=== PATIENT | male | born 1980 | race African-American/Black ===

== ENCOUNTER → 2017-04-04 | Outpatient (CLI) | payer BC ==
--- NOTE | 2017-04-04 18:10 | US ---
EXAMINATION TYPE: US abdomen APPY DATE OF EXAM: 04/04/2017 COMPARISON: NONE CLINICAL HISTORY: R10.31 RLQ Pain. Abdomen pain x couple days APPENDIX Is the appendix seen in its entirety from the proximal cecum to distal end: No RLQ: no mass, fluid collection or other abnormality seen at this time to account for patient's clinic al symptoms. IMPRESSION: As above, no significant finding is seen to account for patient's symptoms though append ix is not identified on images saved.
== END | disposition home or self-care (01) ==
LOC: RADUSMAIN 17:13
PROVIDERS: ATTEND Physician Assistant
DX: R10.31 Right lower quadrant pain (principal)
CPT/HCPCS: 76705

== ENCOUNTER → 2020-11-07 | Outpatient (CLI) | payer BC ==
--- NOTE | 2020-11-07 22:02 | MR ---
EXAMINATION TYPE: MR thoracic spine wo con DATE OF EXAM: 11/07/2020 COMPARISON: None HISTORY: Mid back and low back pain for 2 years. Multiplanar multiecho imaging of the thoracic spine without contrast. Thoracic vertebra have normal alignment. Disc spaces are fairly normal. Cervical spinal appears intac t. Thoracic spinal cord appears normal. There is no evidence of a mass. There is no spinal stenosis. There is no thoracic paraspinal mass. Posterior elements are intact. IMPRESSION: Negative MR scan of the thoracic spine. No thoracic disc herniation or spinal stenosis. No fracture s een.
== END | disposition home or self-care (01) ==
LOC: RADMRIMAIN 12:58
PROVIDERS: ATTEND Family Medicine
DX: S29.012A Strain of muscle and tendon of back wall of thorax, initial encounter (principal)
CPT/HCPCS: 72146

== ENCOUNTER 2022-12-13 09:30 | Day surgery (SDC) | payer BC ==
[2022-12-08 10:48] VITALS: BMI 32.5
[~2022-12-13 09:30] MED LIST: LACTATED RINGERS 1,000 ML IV SCH; SODIUM CHLORIDE 0.9% 1,000 ML IV SCH
[2022-12-13 10:23] LABS: Basophils % (A) 1 %; Eosinophils # (A) 0.1 k/uL (0-0.7); Eosinophils % (A) 3 %; HCT 44.4 % (39.0-53.0); HGB 14.5 gm/dL (13.0-17.5); Lymphocytes # (A) 1.6 k/uL (1.0-4.8); Lymphocytes % (A) 37 %; MCH 27.9 pg (25.0-35.0); MCHC 32.5 g/dL (31.0-37.0); MCV 85.8 fL (80.0-100.0); Mean Platelet Volume 6.5; Monocytes # (A) 0.3 k/uL (0-1.0); Monocytes % (A) 7 %; Neutrophils # (A) 2.2 k/uL (1.3-7.7); Neutrophils % (A) 50 %; Platelet Count 307 k/uL (150-450); RBC 5.18 m/uL (4.30-5.90); RDW 13.2 % (11.5-15.5); WBC 4.4 k/uL (3.8-10.6)
[2022-12-13 10:39] LABS: African American GFR (CKD) 69 (>60 ml/min/1.73 sqM); Anion Gap 6 mmol/L; Blood Urea Nitrogen 14 mg/dL (9-20); Calcium 9.9 mg/dL (8.4-10.2); Carbon Dioxide 29 mmol/L (22-30); Chloride 105 mmol/L (98-107); Glucose 102 mg/dL (74-99); Non-African American GFR(CKD) 60 (>60 ml/min/1.73 sqM); Potassium 4.4 mmol/L (3.5-5.1); Sodium 140 mmol/L (137-145)
[2022-12-13] MEDS ORDERED: ISOPROTERENOL 250 MCG/1.25 ML SYR IV ONE (12:17)
[2022-12-13] MEDS ORDERED: MIDAZOLAM 2 MG/2 ML VIAL ONE (12:17)
[2022-12-13] MEDS ORDERED: fentaNYL (PF) 50 MCG/ML 2 ML AMP ONE (12:17)
[2022-12-13] MEDS ORDERED: ATROPINE SULFATE 0.1 MG/ML 10ML SYRINGE ONE (12:17)
--- NOTE | 2022-12-13 12:31 | P.HPCAR ---
History of Present Illness This is Dr. Cota dictating an H/P on this patient The patient was interviewed and examined IMPRESSION / ASSESSMENT: Recurrent palpitations associated with presyncope and blurred vision No syncope Hypertension Dyslipidemia PLAN: Diagnostic EP study HPI Patient continues to experience palpitations these last for about 5-15 minutes and associated with dizziness and blurred vision There of sudden onset His stress test was normal ROS: No fever chills or rigors, no cough, phlegm or expectoration, no nausea, vomiting or diarrhea, no hematuria, dysuria, no musculoskeletal complaints, no strokes or seizures, no skin lesions. EXAMINATION: Normal blood pressure 124/75 mmHg pulse rate in the 70s Breath sounds are clear Heart sounds S1 and S2 normal REVIEW OF LABS, ECG & MEDICAL DATA losartan 50 mg daily, atorvastatin 10 mg daily Physical Exam Vitals: Vital Signs Temp Pulse Resp BP Pulse Ox 12/13/22 10:04 97.8 F 74 18 124/75 96 Intake and Output 12/12/22 12/13/22 12/13/22 22:59 06:59 14:59 Intake Total 100 Balance 100 Intake: IV 100 Other: Weight 108.6 kg Past Medical History Past Medical History: Asthma, GERD/Reflux, Hyperlipidemia, Hypertension Additional Past Medical History / Comment(s): SEE DR COTA'S H&P History of Any Multi-Drug Resistant Organisms: None Reported Additional Past Surgical History / Comment(s): RECTAL FISSURE CORRECTION Past Anesthesia/Blood Transfusion Reactions: No Reported Reaction Past Psychological History: ADD/ADHD, Bipolar Smoking Status: Never smoker Past Alcohol Use History: None Reported Past Drug Use History: None Reported - Past Family History Mother Family Medical History: Hypertension Father Family Medical History: Hypertension Physical Examination Vital Signs Temp Pulse Resp BP Pulse Ox 12/13/22 10:04 97.8 F 74 18 124/75 96 Intake and Output 12/12/22 12/13/22 12/13/22 22:59 06:59 14:59 Intake Total 100 Balance 100 Intake: IV 100 Other: Weight 108.6 kg Results 12/13/22 10:00 12/13/22 10:00 CBC 12/13/22 Range/Units 10:00 WBC 4.4 (3.8-10.6) k/uL RBC 5.18 (4.30-5.90) m/uL Hgb 14.5 (13.0-17.5) gm/dL Hct 44.4 (39.0-53.0) % Plt Count 307 (150-450) k/uL Comprehensive Metabolic Panel 12/13/22 Range/Units 10:00 Sodium 140 (137-145) mmol/L Potassium 4.4 (3.5-5.1) mmol/L Chloride 105 (98-107) mmol/L Carbon Dioxide 29 (22-30) mmol/L BUN 14 (9-20) mg/dL Creatinine 1.44 H (0.66-1.25) mg/dL Glucose 102 H (74-99) mg/dL Calcium 9.9 (8.4-10.2) mg/dL Current Medications Generic Name Dose Route Start Last Admin Trade Name Ana PRN Reason Stop Dose Admin Sodium Chloride 1,000 mls @ 20 mls/hr 12/13/22 05:53 12/13/22 10:07 Saline 0.9% IV 01/12/23 05:54 100 mls .Q24H HARSHA Administration Lactated Ringer's 1,000 mls @ 20 mls/hr 12/13/22 05:53 Lactated Ringers IV 01/12/23 05:54 .Q24H HARSHA Intake and Output 12/12/22 12/13/22 12/13/22 22:59 06:59 14:59 Intake Total 100 Balance 100 Intake: IV 100 Other: Weight 108.6 kg Patient Weight 12/14/22 06:59 Weight 108.6 kg 12/13/22 10:00 12/13/22 10:00
[2022-12-13] MEDS ORDERED: HEPARIN SODIUM 1,000 UN/ML (10ML VL) ONE (12:32)
[2022-12-13] MEDS ORDERED: LIDOCAINE 1% INJ 10MG/ML (20 ML MDV) ONE (12:32)
[2022-12-13] MEDS ORDERED: LIDOCAINE 1% INJ 10MG/ML (20 ML MDV) SQ ONE (12:58)
[2022-12-13] MEDS ORDERED: ACETAMINOPHEN IV (For NPO) 1,000 MG in EMPTY BAG 1 BAG IVPB ONE (14:40)
[2022-12-13] MEDS ORDERED: ACETAMINOPHEN TAB 325 MG TAB PO PRN (14:40)
[2022-12-13 14:55] VITALS: TEMP 98.3
[2022-12-13 18:32] VITALS: BP 118/72; PULSE 74; RESP 16
--- NOTE | 2022-12-15 15:24 | P.EPPROC ---
- EP Procedure Note Electrophysiology Procedure Note: Diagnosis Recurrent palpitations Final diagnosis Normal sinus node function Normal AV node function with antegrade slow pathway conduction without AV cruz reentry No evidence for accessory pathway conduction No nonsustained or sustained VT Very short bursts of nonsustained atrial tachycardia more prominent after giving atropine IV, not reproducible Details Patient was brought to the EP lab in a fasting state. Written informed consent was obtained prior to the procedure. Venous sheaths were placed in the left femoral vein Diagnostic catheters position the high right atrium, His bundle area right ventricular and coronary sinus Baseline measurements were as follows Sinus cycle length 793 ms, AZ interval 176 ms, QRS 112 ms and QT 388 ms AH 95 ms and HV interval 43 ms Sinus node recovery times at 600, 504 100 ms were 1147, 1216 and 838 ms Data sinus recovery times are normal On Isuprel AV node Wenckebach block 240 ms VA Wenckebach block greater than 590 ms Isuprel started wide open and then at 5 mics Atrial extra stimulation was performed and the jump in the AH interval was noted 500\230 ms but without any echo beats Atrial extra stimulation was performed at different drive trains after double extrastimuli. No SVT induced Burst stimulation was performed from the coronary sinus. Extra stimulation performed from the coronary sinus No SVT induced Double extra stimuli is performed from the coronary sinus on Isuprel and IV atropine 1 mg Very brief runs of atrial tachycardia lasting for less than 60 seconds induced Tachycardia was not reproducible All catheters removed at the end of the procedure
== END 2022-12-13 20:00 | disposition home or self-care (01) ==
LOC: CATHEP 09:30 → 6NMEDSUR 14:14 → CATHEP 20:00
PROVIDERS: ATTEND Internal Medicine Clinical Cardiac Electrophysiology
DX: R00.2 Palpitations (principal); I47.19 Other supraventricular tachycardia; J45.909 Unspecified asthma, uncomplicated; I10 Essential (primary) hypertension; E78.5 Hyperlipidemia, unspecified; K21.9 Gastro-esophageal reflux disease without esophagitis; F31.9 Bipolar disorder, unspecified; Z82.49 Family history of ischemic heart disease and other diseases of the circulatory system
CPT/HCPCS: 93623; 93621; 93620; 86900; 86901; 80048; 84443; 85025; 86850; C1894; C1769; C1760; C1730 ×3; J2250; J2001; J0461; J3010

== ENCOUNTER 2022-12-21 09:45 | Day surgery (SDC) | payer BC ==
[~2022-12-21 09:45] MED LIST changes: +DEXAMETHASONE SOD PHOSPHATE 4 MG/ML 1 ML VIAL IV ONE; +FAMOTIDINE 20 MG/2 ML VIAL IV PRN; +HYDROmorphone 0.5 MG/0.5 ML SYRINGE IVP PRN; +LIDOCAINE 1% (10MG/ML) FOR IV START INTRADERMA PRN; +ONDANSETRON 4 MG/2 ML VIAL IVP ONE; +ONDANSETRON 4 MG/2 ML VIAL IVP PRN; -SODIUM CHLORIDE 0.9% 1,000 ML IV SCH; +droPERidol 5 MG/2 ML VIAL IVP ONE
[2022-12-21] MEDS: OXYMETAZOLINE 0.05% NASL SPRAY 1 SPRAY BOTTLE EA NOSTRIL PRN ×4 (10:13→10:28)
[2022-12-21] MEDS ORDERED: ePHEDrine 50 MG/ML 1 ML VIAL ONE (10:28)
[2022-12-21] MEDS ORDERED: PROPOFOL 10 MG/ML 20 ML VIAL IV ONE (10:28)
[2022-12-21] MEDS ORDERED: ROCURONIUM 10 MG/ML (5 ML VIAL) IV ONE (10:28)
[2022-12-21] MEDS ORDERED: NEOSTIGMINE 1 MG/ML 10 ML VIAL ONE (10:28)
[2022-12-21] MEDS ORDERED: PHENYLEPHRINE-0.9% NACL SYG 1,000 MCG/10 ML SYRINGE ONE (10:28)
[2022-12-21] MEDS ORDERED: MIDAZOLAM 2 MG/2 ML VIAL ONE (10:28)
[2022-12-21] MEDS ORDERED: GLYCOPYRROLATE 0.2 MG/ML 2 ML VIAL ONE (10:28)
[2022-12-21] MEDS ORDERED: fentaNYL (PF) 50 MCG/ML 2 ML AMP ONE (10:28)
[2022-12-21] MEDS ORDERED: SUCCINYLCHOLINE CHLORIDE 200 MG/10 ML VIAL IV ONE (10:28)
[2022-12-21] MEDS ORDERED: LIDOCAINE 1% INJ 10MG/ML (20 ML MDV) ONE (10:28)
[2022-12-21] MEDS ORDERED: BACITRACIN ZINC 500 UNIT/GM OINT 28.4 GM TUBE TOPICAL ONE (10:30)
[2022-12-21] MEDS ORDERED: LIDOCAINE 2%-EPI 1:100,000 20 ML VIAL SUBMUCOSAL ONE (10:30)
--- NOTE | 2022-12-21 11:51 | P.OP ---
Date of Procedure: 12/21/22 Preoperative Diagnosis: Deviated nasal septum Inferior turbinate hypertrophy Chronic sinusitis Postoperative Diagnosis: Same Procedure(s) Performed: Septoplasty Outfracture and submucous resection of the inferior turbinates A left sided endoscopic sinus surgery including left maxillary antrostomy left anterior and posterior ethmoidectomy with sphenoidotomy Anesthesia: SHADE Surgeon: Kavin Loaiza Estimated Blood Loss (ml): 5 Pathology: other (Nasal septum bone and cartilage, sinus contents) Condition: stable Disposition: PACU Indications for Procedure: Is a 42-year-old male whose had difficulties with chronic nasal obstruction especially on the left as well as left facial pain and pressure Operative Findings: Septum deviated left with inferior turbinate hypertrophy obstructed maxillary ostium on the left with mild mucosal thickening in the ethmoid sinuses on the left and maxillary sinus as well as sphenoid sinus Description of Procedure: The patient was brought into the operative suite and placed in a supine posi tion. The patient underwent induction of general anesthesia with oral endotracheal intubation without difficulty. The patient was prepped and draped in the usual aseptic fashion with the orbits in the operating field for monitoring to the case and the computed tomography scan was on the computer screen for review throughout the case. 1% lidocaine with 1 :100,000 epinephrine was infused submucosally into both sides of the nasal septum as well as the lateral nasal wall and anterior tips of the middle turbinates. While this was taking vasoconstrictive effect the inferior turbinates were infractured with Pershing elevator and partial submucous resection of the inferior turbinates was performed with a portion of the submucosal soft tissue and the inferior turbinate bone removed with Coblation d evice. The inferior turbinates were then outfractured with the Pershing elevator. A left hemitransfixion incision was then made with the mucoperichondrial and mucoperiosteal flap on the left elevated. The bony cartilaginous junction was disarticulated and the mucoperiosteal flap on the right was elevated. Bony nasal septal deformities were removed with Florian forceps and an inferior cartilaginous strip was removed leaving a full 1.5 cm caudal strut. Checking intranasally this corrected the nasoseptal deformities and the hemitransfixion incision was closed with a running 4-0 chromic suture. Full 0° endoscopic examination is performed bilaterally. Beginning on the left, the middle turbinate was medialized. The maxillary ostium was located with a ballpoint probe and an infundibulotomy was performed followed by uncinectomy. The maxillary antrostomy was enlarged at the expense of the anterior and posterior fontanelle taking care anteriorly not to injure the lacrimal bone. The maxillary sinus was evaluated with 30 and 70° endoscope Anterior and posterior ethmoidectomy were then performed from anterior to posterior to the level of the skull base. The roof of the anterior ethmoid air cells were then cleaned from posterior to anterior using up-biting Blakesley forceps. Sphenoidotomy was then performed on the left utilizing straight suction and straight Blakesley forceps. The sinus was explored with 30 and 70 endoscope. No procedures were performed on the right as far as the sinuses. [Nasopore nasal dressing was placed in the middle meatus bilaterally under direct visualization]. Bilateral [place] airway splints coated with bacitracin ointment were placed and sutured transseptally with a 4-0 nylon suture. The patient was suctioned in oral gastric fashion and was allowed to emerge from general anesthesia having tolerated procedure well and was extubated in the operating suite and transferred to the postoperative recovery area in satisfactory condition.
[2022-12-21 12:12] VITALS: TEMP 96.7
[2022-12-21] MEDS ORDERED: SODIUM CHLORIDE 0.9% 1,000 ML IV ONE (12:51)
[2022-12-21] MEDS ORDERED: HYDROcodone/APAP 5-325MG 1 EACH TAB PO ONE (13:41)
[2022-12-21] MEDS ORDERED: HYDROcodone/APAP 5-325MG 1 EACH TAB ONE (13:42)
[2022-12-21 14:55] VITALS: BP 126/78; PULSE 65; RESP 16
== END 2022-12-21 15:08 | disposition home or self-care (01) ==
LOC: OR 09:45
PROVIDERS: ATTEND Otolaryngology
DX: J34.3 Hypertrophy of nasal turbinates (principal); J34.2 Deviated nasal septum; I10 Essential (primary) hypertension; J45.20 Mild intermittent asthma, uncomplicated; F31.9 Bipolar disorder, unspecified; F90.9 Attention-deficit hyperactivity disorder, unspecified type; G47.30 Sleep apnea, unspecified; J32.0 Chronic maxillary sinusitis; Z91.013 Allergy to seafood; Z91.048 Other nonmedicinal substance allergy status; Z79.51 Long term (current) use of inhaled steroids; Z79.899 Other long term (current) drug therapy
CPT/HCPCS: 30520; 31256; 30140; 31287; 88305; 88300; J2250; J0330; J1100; J2710; J0690; J2405; J2001; J3010; J3490; J2704; J2371